=== PATIENT | male | born 1980 | race Caucasian/White ===

== ENCOUNTER 2017-09-20 16:27 | Emergency (ER) | payer OTHER ==
[~2017-09-20] VITALS: Ht 188 cm; Wt 91.0 kg
[~2017-09-20 16:27] MED LIST: ACET-1757 PO; CLIN300C8 PO; DOXY100C15 PO; LACT1CAP35 PO; LEVO750T6 PO
[2017-09-20] MEDS ORDERED: DIPH,PERTUSS(ACELL),TET VAC/PF 0.5 ML IM-VACC ONE ×2 (17:00→19:48)
[2017-09-20] MEDS ORDERED: BACITRACIN ZINC OINT 500U/GM, 0.9 GM ONE (17:07)
[2017-09-20] MEDS ORDERED: PROPOFOL 10 MG/ML, 20ML ONE (17:54)
[2017-09-20] MEDS ORDERED: KETAMINE 10 MG/ML, 20ML ONE (17:55)
[2017-09-20] MEDS ORDERED: PROPOFOL 10 MG/ML, 20ML IVPush ONE (18:00)
[2017-09-20] MEDS ORDERED: KETAMINE 10 MG/ML, 20ML IV ONE ×2 (18:00)
[2017-09-20 19:53] VITALS: BP 130/84
== END 2017-09-20 19:23 | disposition home or self-care (01) ==
LOC: ED 19:17
DX: S53.125A Posterior dislocation of left ulnohumeral joint, initial encounter (principal); Z23 Encounter for immunization; F10.129 Alcohol abuse with intoxication, unspecified; V49.49XA Driver injured in collision with other motor vehicles in traffic accident, initial encounter; Y93.89 Activity, other specified; Y99.8 Other external cause status; Y92.89 Other specified places as the place of occurrence of the external cause
CPT/HCPCS: 24600; 90471; 90715; 99152